=== PATIENT | male | born 1950 | race Caucasian/White ===

== ENCOUNTER 2016-09-03 08:24 | Outpatient (CLI) | payer OTHER ==
--- NOTE | 2016-09-03 13:08 | MRI Report ---
EXAM: RIGHT KNEE MRI WITHOUT CONTRAST EXAM DATE: 09/03/2016 09:05 AM. CLINICAL HISTORY: RIGHT KNEE PAIN. PT FELL IN MAY 2015 ON CEMENT WHICH AGGRAVATED CHRONIC RT KNEE P AIN. COMPARISON: RIGHT KNEE SERIES 08/03/2015. TECHNIQUE: Multiplanar, multisequence T1-weighted and fluid-sensitive sequences of the knee without c ontrast. Other: None. FINDINGS: Bones: No fractures or subluxations. No marrow edema. There are 2 small benign enchondromas in the di stal femoral diametaphyseal region; the more proximal and larger one measures 16 mm in length, 12 mm in AP dimension and 8 mm in width.. Articular Cartilage: Unremarkable. Medial Meniscus: The medial meniscus is intact. Lateral Meniscus: The lateral meniscus is intact. Cruciate Ligaments: The anterior and posterior cruciate ligaments are intact. Collateral Ligaments: Grade 1 sprain of the medial collateral ligament with mild edema underneath the ligament, without laxity. The posterior oblique and the lateral collateral ligaments are intact. Tendons: The quadriceps, patellar, semimembranosus, and popliteus tendons are unremarkable. Musculature: No edema or fatty atrophy. Other: No effusion. No popliteal cyst. No loose bodies. The medial and lateral retinacula, patellofe moral ligaments and iliotibial band are intact. No bursitis. Nonspecific mild subcutaneous edema in the anterior lateral part of the knee, nonspecific, without focal hematoma. The fat pads are unremark able. IMPRESSION: 1. Grade 1 sprain of the medial collateral ligament. 2. Menisci and cruciate ligaments are intact. 3. There are 2 small benign enchondromas in the distal femoral diametaphyseal region; the more proxim al and larger one measures 16 mm in length, 12 mm in AP dimension and 8 mm in width. They are most li avis of no clinical significance. 4. No fracture. [facility] MUSCULOSKELETAL RADIOLOGY SECTION Referring Provider Line: [phone] SITE ID: [id number]
== END 2016-09-03 08:25 | disposition home or self-care (01) ==
LOC: DI 08:24
DX: S83.411A Sprain of medial collateral ligament of right knee, initial encounter (principal); D16.21 Benign neoplasm of long bones of right lower limb

== ENCOUNTER 2016-11-14 07:35 | Outpatient (CLI) | payer OTHER ==
[2016-11-14 13:27] LABS: BILIRUBIN,URINE NEGATIVE (NEGATIVE)
[2016-11-14 14:15] LABS: BASOPHILS % (AUTO) 0.3 %; EOSINOPHILS # (AUTO) 0.2 10^3/uL (0.0-0.7); EOSINOPHILS % (AUTO) 2.5 %; HCT - HEMATOCRIT 40.4 % (42.0-52.0); HGB - HEMOGLOBIN 13.7 g/dL (14.0-18.0); LYMPHOCYTES # (AUTO) 2.4 10^3/uL (1.5-3.5); LYMPHOCYTES % (AUTO) 26.1 %; MEAN CORPUSCULAR HEMOGLOBIN 29.5 pg (27.0-31.0); MEAN CORPUSCULAR HGB CONC 33.9 g/dL (32.0-36.0); MEAN CORPUSCULAR VOLUME 86.9 fL (80.0-94.0); MEAN PLATELET VOLUME 10.6 fL (7.4-11.4); MONOCYTES # (AUTO) 0.6 10^3/uL (0.0-1.0); MONOCYTES % (AUTO) 6.5 %; NEUTROPHILS % (AUTO) 64.6 %; RED BLOOD COUNT 4.65 10^6/uL (4.70-6.10); RED CELL DISTRIBUTION WIDTH 14.6 % (12.0-15.0); UNCORRECTED WHITE BLOOD COUNT 9.3 x10^3/uL; WHITE BLOOD COUNT 9.3 x10^3/uL (4.8-10.8)
[2016-11-14 14:51] LABS: ALBUMIN/GLOBULIN RATIO 1.4 (1.0-2.2); BILIRUBIN,TOTAL 1.1 mg/dL (0.2-1.0); BUN - BLOOD UREA NITROGEN 15 mg/dL (6-20); CALCIUM 9.2 mg/dL (8.5-10.3); CARBON DIOXIDE - CO2 27 mmol/L (21-32); CHLORIDE 104 mmol/L (101-111); CHOL/HDL RATIO 3.4 (<5.0); CHOLESTEROL 106 mg/dL; CREATININE 0.9 mg/dL (0.6-1.2); GFR - MDRD 85 (>89); GLUCOSE 115 mg/dL (70-100); HDL CHOLESTEROL 31 mg/dL; LDL/HDL RATIO 1.6 (<3.6); POTASSIUM 3.5 mmol/L (3.5-5.0); SODIUM 139 mmol/L (135-145); TOTAL PROTEIN 7.4 g/dL (6.7-8.2); TRIGLYCERIDES 131 mg/dL; VLDL CHOLESTEROL 26 mg/dL
[2016-11-14 15:36] LABS: HEMOGLOBIN A1C 0.68 g/dL
[2016-11-14 15:46] LABS: WBC,URINE 0-3 /HPF (0-3)
== END 2016-11-14 07:36 | disposition home or self-care (01) ==
LOC: LAB.WCP 07:35
PROVIDERS: ATTEND Family Medicine
DX: R73.01 Impaired fasting glucose (principal); I25.10 Atherosclerotic heart disease of native coronary artery without angina pectoris; I10 Essential (primary) hypertension; Z12.5 Encounter for screening for malignant neoplasm of prostate
CPT/HCPCS: 36415; 80053; 80061; 81001; 83036; 84153; 85025

== ENCOUNTER 2016-12-27 09:40 | Day surgery (SDC) | payer MEDICARE, OTHER ==
[2016-12-27] MEDS ORDERED: LACTATED RINGERS 1,000 ML IV ONE (10:15)
[2016-12-27] MEDS ORDERED: LIDOCAINE-MPF 2% 5 ML VIAL IM ONE (10:20)
[2016-12-27] MEDS ORDERED: PROPOFOL 200 MG/20 ML VIAL IVP ONE (10:20)
[2016-12-27] MEDS ORDERED: MIDAZOLAM 2 MG/2 ML VIAL IVP ONE (10:20)
[2016-12-27] MEDS ORDERED: KETAMINE 500 MG/10 ML VIAL IVP ONE (10:20)
[2016-12-27] MEDS ORDERED: GLYCOPYRROLATE 1 MG/5 ML VIAL IVP ONE (10:20)
[2016-12-27 12:55] VITALS: BP 99/57
== END 2016-12-27 09:41 | disposition home or self-care (01) ==
LOC: SDS 09:40
PROVIDERS: ATTEND Surgery
PROC: 0DBM8ZZ Excision of Descending Colon, Via Natural or Artificial Opening Endoscopic (ICD-10-PCS; 2016-12-27)
PROC: 0DBK8ZZ Excision of Ascending Colon, Via Natural or Artificial Opening Endoscopic (ICD-10-PCS; principal; 2016-12-27 11:00)
DX: Z12.11 Encounter for screening for malignant neoplasm of colon (principal); D12.2 Benign neoplasm of ascending colon; D12.4 Benign neoplasm of descending colon; K64.4 Residual hemorrhoidal skin tags; K64.8 Other hemorrhoids; G47.30 Sleep apnea, unspecified; K21.9 Gastro-esophageal reflux disease without esophagitis; I10 Essential (primary) hypertension; I25.10 Atherosclerotic heart disease of native coronary artery without angina pectoris; Z95.5 Presence of coronary angioplasty implant and graft; Z87.891 Personal history of nicotine dependence; E78.5 Hyperlipidemia, unspecified
CPT/HCPCS: 45380; J7120

== ENCOUNTER 2017-02-10 07:55 | Outpatient (CLI) | payer MEDICARE, OTHER ==
[2017-02-10 12:49] LABS: HEMOGLOBIN A1C 0.59 g/dL
[2017-02-10 12:52] LABS: PSA FREE 0.34 ng/mL (0.16-2.81)
[2017-02-10 12:53] LABS: PSA TOTAL 2.52 ng/mL (0.000-2.000)
[2017-02-10 12:54] LABS: ALBUMIN/GLOBULIN RATIO 1.2 (1.0-2.2); BILIRUBIN,TOTAL 0.8 mg/dL (0.2-1.0); CALCIUM 9.1 mg/dL (8.5-10.3); CREATININE 0.9 mg/dL (0.6-1.2); POTASSIUM 3.7 mmol/L (3.5-5.0); TOTAL PROTEIN 7.5 g/dL (6.7-8.2)
== END 2017-02-10 07:56 | disposition home or self-care (01) ==
LOC: LAB.WCP 07:55
PROVIDERS: ATTEND Family Medicine
DX: R73.01 Impaired fasting glucose (principal); R97.20 Elevated prostate specific antigen [PSA]
CPT/HCPCS: 36415; 80053; 83036; 84154

== ENCOUNTER 2017-03-17 11:30 | Outpatient (CLI) | payer MEDICARE, OTHER | END 2017-03-17 11:31 | disposition home or self-care (01) | LOC: SC 11:30 | PROVIDERS: ATTEND Internal Medicine Pulmonary Disease | DX: G47.33 Obstructive sleep apnea (adult) (pediatric) (principal) | CPT/HCPCS: 99203; G0463; 99212 ==

== ENCOUNTER 2017-06-02 09:14 | Outpatient (CLI) | payer MEDICARE, OTHER | END 2017-06-02 09:15 | disposition home or self-care (01) | LOC: SC 09:14 | PROVIDERS: ATTEND Internal Medicine Pulmonary Disease | DX: G47.33 Obstructive sleep apnea (adult) (pediatric) (principal) | CPT/HCPCS: 99213; G0463; 99212 ==

== ENCOUNTER 2017-09-29 07:21 | Outpatient (CLI) | payer MEDICARE, OTHER ==
[2017-09-29 13:22] LABS: PSA FREE 0.32 ng/mL (0.16-2.81)
[2017-09-29 13:23] LABS: PSA TOTAL 5.62 ng/mL (0.000-2.000)
[2017-09-29 13:27] LABS: BASOPHILS % (AUTO) 0.3 %; EOSINOPHILS # (AUTO) 0.2 10^3/uL (0.0-0.7); EOSINOPHILS % (AUTO) 2.4 %; HGB - HEMOGLOBIN 12.2 g/dL (14.0-18.0); LYMPHOCYTES # (AUTO) 2.5 10^3/uL (1.5-3.5); LYMPHOCYTES % (AUTO) 26.6 %; MEAN CORPUSCULAR HEMOGLOBIN 29.4 pg (27.0-31.0); MEAN CORPUSCULAR HGB CONC 34.3 g/dL (32.0-36.0); MEAN CORPUSCULAR VOLUME 85.8 fL (80.0-94.0); MEAN PLATELET VOLUME 9.4 fL (7.4-11.4); MONOCYTES # (AUTO) 0.6 10^3/uL (0.0-1.0); MONOCYTES % (AUTO) 6.1 %; NEUTROPHILS % (AUTO) 64.6 %; PLT - PLATELET COUNT 194 10^3/uL (130-450); RED BLOOD COUNT 4.15 10^6/uL (4.70-6.10); RED CELL DISTRIBUTION WIDTH 15.3 % (12.0-15.0); WHITE BLOOD COUNT 9.3 x10^3/uL (4.8-10.8)
[2017-09-29 13:42] LABS: HB2 TOTAL 12.9 g/dL; HEMOGLOBIN A1C 0.63 g/dL; HEMOGLOBIN A1C % 6.6 % (4.6-6.2)
[2017-09-29 14:00] LABS: ALBUMIN 3.9 g/dL (3.2-5.5); ALBUMIN/GLOBULIN RATIO 1.2 (1.0-2.2); ALKALINE PHOSPHATASE 47 IU/L (42-121); ALT ALANINE AMINOTRANSFERASE 26 IU/L (10-60); AST ASPARTATE AMINOTRANSFERASE 27 IU/L (10-42); BILIRUBIN,TOTAL 0.7 mg/dL (0.2-1.0); BUN - BLOOD UREA NITROGEN 11 mg/dL (6-20); CALCIUM 8.8 mg/dL (8.5-10.3); CARBON DIOXIDE - CO2 25 mmol/L (21-32); CHLORIDE 98 mmol/L (101-111); CHOL/HDL RATIO 3.1 (<5.0); CHOLESTEROL 93 mg/dL; CREATININE 0.9 mg/dL (0.6-1.2); GFR - MDRD 85 (>89); GLUCOSE 116 mg/dL (70-100); HDL CHOLESTEROL 30 mg/dL; LDL CHOLESTEROL,CALCULATED 23 mg/dL; LDL/HDL RATIO 0.8 (<3.6); SODIUM 134 mmol/L (135-145); TOTAL PROTEIN 7.2 g/dL (6.7-8.2); URIC ACID 5.2 mg/dL (2.6-7.2); VLDL CHOLESTEROL 40 mg/dL
== END 2017-09-29 07:22 | disposition home or self-care (01) ==
LOC: LAB.WCP 07:21
PROVIDERS: ATTEND Family Medicine
DX: I10 Essential (primary) hypertension (principal); R73.09 Other abnormal glucose; E78.5 Hyperlipidemia, unspecified; R97.20 Elevated prostate specific antigen [PSA]; M10.9 Gout, unspecified; E74.39 Other disorders of intestinal carbohydrate absorption
CPT/HCPCS: 36415; 80053; 80061; 83036; 83721; 84154; 84443; 84550; 85025

== ENCOUNTER 2018-04-14 10:03 | Outpatient (CLI) | payer MEDICARE, OTHER ==
[2018-04-14 19:08] LABS: CALCIUM 9.1 mg/dL (8.5-10.3); CREATININE 0.9 mg/dL (0.6-1.2)
[2018-04-14 19:23] LABS: HB2 TOTAL 14.2 g/dL; HEMOGLOBIN A1C 0.59 g/dL
== END 2018-04-14 10:04 | disposition home or self-care (01) ==
LOC: LAB.WCP 10:03
PROVIDERS: ATTEND Family Medicine
DX: E11.9 Type 2 diabetes mellitus without complications (principal); R97.20 Elevated prostate specific antigen [PSA]; N40.0 Benign prostatic hyperplasia without lower urinary tract symptoms
CPT/HCPCS: 36415; 80048; 82043; 83036

== ENCOUNTER 2018-04-15 07:35 | Outpatient (CLI) | payer MEDICARE, OTHER | END 2018-04-15 07:36 | disposition home or self-care (01) | LOC: LAB.WCP 07:35 | PROVIDERS: ATTEND Family Medicine | DX: E11.9 Type 2 diabetes mellitus without complications (principal); N40.0 Benign prostatic hyperplasia without lower urinary tract symptoms; R97.20 Elevated prostate specific antigen [PSA] | CPT/HCPCS: 82043 ==

== ENCOUNTER 2018-06-01 09:03 | Outpatient (CLI) | payer MEDICARE, OTHER | END 2018-06-01 09:04 | disposition home or self-care (01) | LOC: SC 09:03 | PROVIDERS: ATTEND Internal Medicine Pulmonary Disease | DX: G47.33 Obstructive sleep apnea (adult) (pediatric) (principal) | CPT/HCPCS: 99213; G0463; 99212 ==

== ENCOUNTER 2018-11-13 08:00 | Outpatient (CLI) | payer MEDICARE, OTHER ==
[2018-11-13 11:52] LABS: BASOPHILS % (AUTO) 0.5 %; EOSINOPHILS # (AUTO) 0.3 10^3/uL (0.0-0.7); EOSINOPHILS % (AUTO) 3.4 %; HGB - HEMOGLOBIN 11.9 g/dL (14.0-18.0); LYMPHOCYTES # (AUTO) 2.2 10^3/uL (1.5-3.5); LYMPHOCYTES % (AUTO) 28.9 %; MEAN CORPUSCULAR HGB CONC 32.1 g/dL (32.0-36.0); MEAN CORPUSCULAR VOLUME 90.5 fL (80.0-94.0); MEAN PLATELET VOLUME 11.9 fL (7.4-11.4); MONOCYTES # (AUTO) 0.6 10^3/uL (0.0-1.0); MONOCYTES % (AUTO) 7.7 %; NEUTROPHILS # (AUTO) 4.5 10^3/uL (1.5-6.6); PLT - PLATELET COUNT 201 10^3/uL (130-450); RED CELL DISTRIBUTION WIDTH 13.6 % (12.0-15.0); WHITE BLOOD COUNT 7.6 x10^3/uL (4.8-10.8)
[2018-11-13 12:26] LABS: ALBUMIN 3.8 g/dL (3.2-5.5); ALBUMIN/GLOBULIN RATIO 1.1 (1.0-2.2); ALKALINE PHOSPHATASE 57 IU/L (42-121); ALT ALANINE AMINOTRANSFERASE 45 IU/L (10-60); AST ASPARTATE AMINOTRANSFERASE 35 IU/L (10-42); BILIRUBIN,TOTAL 0.7 mg/dL (0.2-1.0); BUN - BLOOD UREA NITROGEN 16 mg/dL (6-20); CARBON DIOXIDE - CO2 28 mmol/L (21-32); CHLORIDE 100 mmol/L (101-111); CHOL/HDL RATIO 3.5 (<5.0); CHOLESTEROL 99 mg/dL; GFR - MDRD 75 (>89); GLUCOSE 142 mg/dL (70-100); HDL CHOLESTEROL 28 mg/dL; LDL CHOLESTEROL,CALCULATED 32 mg/dL; LDL/HDL RATIO 1.1 (<3.6); SODIUM 136 mmol/L (135-145); TOTAL PROTEIN 7.4 g/dL (6.7-8.2); URIC ACID 6.3 mg/dL (2.6-7.2); VLDL CHOLESTEROL 39 mg/dL
[2018-11-13 12:27] LABS: HB2 TOTAL 12.8 g/dL; HEMOGLOBIN A1C 0.7 g/dL; HEMOGLOBIN A1C % 7.2 % (4.6-6.2)
== END 2018-11-13 23:59 | disposition home or self-care (01) ==
LOC: LAB.WCP 08:00
PROVIDERS: ATTEND Family Medicine
DX: E11.9 Type 2 diabetes mellitus without complications (principal)
CPT/HCPCS: 36415; 80053; 80061; 83036; 83721; 84550; 85025

== ENCOUNTER 2018-11-28 07:48 | Outpatient (CLI) | payer MEDICARE, OTHER ==
--- NOTE | 2018-11-29 10:48 | Ultrasound Report ---
Reason: NICOTINE ADDICTION Procedure Date: 11/28/2018 Accession Number: [id number] / [id number] Procedure: US - Aorta Screening CPT Code: FULL RESULT: EXAM: AORTIC DOPPLER ULTRASOUND EXAM DATE: 11/28/2018 08:55 AM. CLINICAL HISTORY: Nicotine addiction. COMPARISON: None. TECHNIQUE: Real-time sonographic imaging of retroperitoneal vascular structures, including color-flow, Doppler flow and spectral analysis was performed by the hot wort settler. Multiple account service representative static images were saved for review. FINDINGS: Aorta: The abdominal aorta was adequately visualized. No evidence for abdominal aortic aneurysm. Atheromatous plaques are noted. Aorta: Proximal: Sagittal AP 2.7 x 2.8 cm. Mid: Transverse 2.3 x 2.3 cm. Distal: Transverse 1.8 x 1.7 cm. Plaque visualized: Yes. Iliacs: Right Iliac: Transverse 1.3 x 1.1 cm. Left Iliac: Transverse 1.1 x 1.2 cm. Iliac Vessels: The visualized proximal common iliac arteries are normal in caliber. Other: Study limited by bowel gas and body habitus. IMPRESSION: No abdominal aortic aneurysm. [facility]
== END 2018-11-28 07:49 | disposition home or self-care (01) ==
LOC: DI 07:48
PROVIDERS: ATTEND Family Medicine
DX: I70.0 Atherosclerosis of aorta (principal); F17.201 Nicotine dependence, unspecified, in remission
CPT/HCPCS: 76706

== ENCOUNTER 2019-07-06 15:48 | Outpatient (CLI) | payer MEDICARE, OTHER ==
--- NOTE | 2019-07-06 14:32 | SLEEP CARE CONSULTATION ---
Information from patient questionnaire entered by Khushbu Flores. I have reviewed and concur with the information entered by Khushbu Flores. This document represents the service I personally performed and the decisions made by me, Gemma Stanford MD, [facility]. History of Present Illness Service Date and Time: 07/06/2019 1420 Previous diagnosis: Severe, Obstructive Sleep Apnea-Hypopnea Syndrome AHI: 56.9 Reason for follow up: annual Equipment type: CPAP Equipment obtained from: [employer] HPI additional information: To minimize the risk of COVID-19 exposure, the patient has requested and consented to this video telemedicine visit. The patient also agrees to having his insurance billed. HPI: Mr. Saxena was called today to follow up on the nasal CPAP therapy. He was diagnosed to have severe obstructive sleep apnea-hypopnea syndrome. The patient wears Respironics DreamWear nasal pillows. He reports using the device nightly and all through the night. The compliance report shows usage in 180 nights out of the past 180 nights, averaging 7.3 hours a night. The > 4 hour compliance rate for the past 180 days is 100%. He complained of no particular problem with the device such as soreness on the face, dry nose, epistaxis, nasal congestion or headache. He thinks that the pressure of 13 cmH2O is comfortable. On the CPAP therapy he notices improvement in his sleep quality, and that he wakes up feeling fresher in the morning and more awake/alert during the day. His notices no snore at all. The average residual AHI is 1.4; and average time in average air leak is 0.5 L/minute. CPAP Compliance Data - Data Reviewed with Patient Average duration of nightly device use: 7H 20M Compliance rate %: 100 Current pressure setting (cmH2O): 10-15 Subjective Initial [place] Sleepiness Scale score: 6 Allergies and Home Medications Drug allergies reviewed: Yes Home medication list reviewed: Yes Review of Systems Review of systems same as previous: Yes Physical Exam Height: 5 ft 8 in Impression and Plan IMPRESSION: 1. Obstructive Sleep Apnea-Hypopnea Syndrome, severe, with the patient doing we ll on nasal CPAP therapy. He has excellent compliance and significant clinical improvement. The current pressure appears effective and comfortable. The nasal pillows fit well. Overall, he is very satisfied with treatment and plans to continue with it long-term. No adjustment is necessary today. PLAN: 1. Continue with autoCPAP set at 13 cmH2O. 2. Try to lose weight 3. Try other masks and nasal pillows, e.g. ResMed N30i mask and P30i nasal pillows. 4. Return in one year for follow up or earlier if there is any problem with the treatment. Visit Type: Telehealth Video Video Type: [employer] Patient Location: Home Location of Provider: Home Patient agrees and consents to this telehealth visit type: Yes Patient agrees to have their insurance billed: Yes Provider Statement: I spent 100% of the Telehealth Video Call with the patient with greater than 50% spent counseling the patient and coordination of care.
== END 2019-07-06 15:49 | disposition home or self-care (01) ==
LOC: SC 15:48
PROVIDERS: ATTEND Internal Medicine Pulmonary Disease
DX: G47.33 Obstructive sleep apnea (adult) (pediatric) (principal)

== ENCOUNTER 2019-11-24 07:00 | Outpatient (CLI) | payer MEDICARE, OTHER ==
[2019-11-24 18:35] LABS: BASOPHILS % (AUTO) 0.3 %; EOSINOPHILS # (AUTO) 0.2 10^3/uL (0.0-0.7); EOSINOPHILS % (AUTO) 2.7 %; HGB - HEMOGLOBIN 11.7 g/dL (14.0-18.0); LYMPHOCYTES % (AUTO) 30.9 %; MEAN CORPUSCULAR HEMOGLOBIN 31.5 pg (27.0-31.0); MEAN CORPUSCULAR HGB CONC 33.6 g/dL (32.0-36.0); MEAN CORPUSCULAR VOLUME 93.8 fL (80.0-94.0); MONOCYTES # (AUTO) 0.4 10^3/uL (0.0-1.0); MONOCYTES % (AUTO) 6.3 %; NEUTROPHILS # (AUTO) 3.8 10^3/uL (1.5-6.6); NEUTROPHILS % (AUTO) 59.5 %; PLT - PLATELET COUNT 180 10^3/uL (130-450); RED BLOOD COUNT 3.71 10^6/uL (4.70-6.10); RED CELL DISTRIBUTION WIDTH 13.7 % (12.0-15.0); WHITE BLOOD COUNT 6.4 x10^3/uL (4.8-10.8)
[2019-11-24 19:07] LABS: CREATININE,URINE 39.5 mg/dL; MICROALBUM/CREATININE RATIO,UR 7.6 ug/mg (<30.0); MICROALBUMIN,URINE 0.3 mg/dL (0-300.0)
[2019-11-24 19:08] LABS: ALBUMIN/GLOBULIN RATIO 1.2 (1.0-2.2); ALKALINE PHOSPHATASE 50 IU/L (42-121); ALT ALANINE AMINOTRANSFERASE 24 IU/L (10-60); AST ASPARTATE AMINOTRANSFERASE 23 IU/L (10-42); BILIRUBIN,TOTAL 0.7 mg/dL (0.2-1.0); BUN - BLOOD UREA NITROGEN 23 mg/dL (6-20); CHOL/HDL RATIO 3.1 (<5.0); CHOLESTEROL 93 mg/dL; CREATININE 1.1 mg/dL (0.6-1.2); HDL CHOLESTEROL 30 mg/dL; LDL CHOLESTEROL,CALCULATED 27 mg/dL; LDL/HDL RATIO 0.9 (<3.6); TOTAL PROTEIN 7.4 g/dL (6.7-8.2); URIC ACID 6.5 mg/dL (2.6-7.2); VLDL CHOLESTEROL 36 mg/dL
[2019-11-24 19:12] LABS: CALCIUM 9.3 mg/dL (8.5-10.3); CARBON DIOXIDE - CO2 25 mmol/L (21-32); CHLORIDE 101 mmol/L (101-111); GLUCOSE 185 mg/dL (70-100); SODIUM 134 mmol/L (135-145)
== END 2019-11-24 23:59 | disposition home or self-care (01) ==
LOC: LAB.WCP 07:00
PROVIDERS: ATTEND Family Medicine
DX: E11.9 Type 2 diabetes mellitus without complications (principal); R97.20 Elevated prostate specific antigen [PSA]; M10.9 Gout, unspecified
CPT/HCPCS: 36415; 80053; 80061; 82043; 82570; 83036; 84550; 85025; G0103; 83721; 84153

== ENCOUNTER 2020-07-24 12:41 | Outpatient (CLI) | payer MEDICARE, OTHER ==
--- NOTE | 2020-07-24 13:22 | SLEEP CARE CONSULTATION ---
Information from patient questionnaire entered by Miryam Sarmiento. I have reviewed and concur with the information entered by Miryam Sarmiento. This document represents the service I personally performed and the decisions made by me, Gemma Stanford MD, [facility]. History of Present Illness Service Date and Time: 07/24/2020 1241 Previous diagnosis: Severe, Obstructive Sleep Apnea-Hypopnea Syndrome AHI: 56.9 (in 2007) Reason for follow up: annual (last seen 06/2019) Equipment type: CPAP Equipment obtained from: Other ([employer]) Mask style: Nasal pillows Prior sleep studies: Yes Year and Where: 2007 - [facility] Sleep Type of Sleep Study: Polysomnography HPI additional information: HPI: Mr. Saxena was diagnosed to have severe obstructive sleep apnea-hypopnea syndrome and returns today for annual follow up of CPAP therapy. The patient purchased the device from [employer] and was fitted with Respironics DreamWear nasal pillows. He continues to use the device nightly and all through the night. The compliance report shows that he uses the device 179 nights out of the past 180 nights, averaging 7.2 hours a night. He complains of no particular problem with the device such as soreness on the face, dry nose, epistaxis, nasal congestion or headache. He thinks that the pressure of 10 - 15 cmH2O is comfortable. On the CPAP therapy he notices improvement in his sleep quality, and that he wakes up feeling fresher in the morning and more awake/alert during the day. [place] Sleepiness Scale score is 3. His notices no snore at all. The average residual AHI is 1.7; and large leak, 0 L/min. The 90th percentile pressure is 13.2 cmH2O. CPAP Compliance Data - Data Reviewed with Patient Average duration of nightly device use: 7 hr 13 min Compliance rate %: 99 (180 days) Current pressure setting (cmH2O): 10-15 Humidity settin Average residual AHI: 1.7 Subjective Missed days of use due to: reports: other (power outages) Patient concerns: reports: dry mouth, nose, throat Current pressure setting perceived as: comfortable Initial [place] Sleepiness Scale score: 18 (in 2007) Current [place] Sleepiness Scale score: 3 Allergies and Home Medications Drug allergies reviewed: Yes Home medication list reviewed: Yes Review of Systems Review of systems same as previous: Yes Physical Exam Height: 5 ft 8 in Weight: 229 lb Body Mass Index: 34.8 BMI Classification: Obese Impression and Plan IMPRESSION: 1. Obstructive Sleep Apnea-Hypopnea Syndrome, severe, with the patient continuing to do well on nasal CPAP therapy. He has excellent compliance and significant clinical benefits. The current pressure appears effective and comfortable. Overall, he is very satisfied with treatment and plans to continue with it long-term. No adjustment is necessary today. PLAN: 1. Leave CPAP at 10 - 15 cm H2O. 2. Prescription made for ResMed P30i nasal pillows. 3. Try to lose weight. 4. Return in one year for follow up or earlier if there is any problem. Follow up recommended for: Weight management Visit Type: In Office Time Spent with Patient (minutes): 15 Provider Statement: I spent 100% of the Face to Face Visit with the patient with greater than 50% spent counseling the patient and coordination of care.
== END 2020-07-24 12:42 | disposition home or self-care (01) ==
LOC: SC 12:41
PROVIDERS: ATTEND Internal Medicine Pulmonary Disease
DX: G47.33 Obstructive sleep apnea (adult) (pediatric) (principal); E66.9 Obesity, unspecified; Z68.34 Body mass index [BMI] 34.0-34.9, adult
CPT/HCPCS: 99212; G0463

== ENCOUNTER 2020-10-23 09:11 | Outpatient (CLI) | payer MEDICARE, OTHER ==
[2020-10-23 12:23] LABS: BASOPHILS % (AUTO) 0.4 %; EOSINOPHILS # (AUTO) 0.2 10^3/uL (0.0-0.7); HCT - HEMATOCRIT 38.6 % (42.0-52.0); HGB - HEMOGLOBIN 12.8 g/dL (14.0-18.0); LYMPHOCYTES # (AUTO) 2.3 10^3/uL (1.5-3.5); LYMPHOCYTES % (AUTO) 29.3 %; MEAN CORPUSCULAR HEMOGLOBIN 30.3 pg (27.0-31.0); MEAN CORPUSCULAR HGB CONC 33.2 g/dL (32.0-36.0); MEAN CORPUSCULAR VOLUME 91.3 fL (80.0-94.0); MEAN PLATELET VOLUME 11.9 fL (7.4-11.4); MONOCYTES # (AUTO) 0.7 10^3/uL (0.0-1.0); MONOCYTES % (AUTO) 8.6 %; NEUTROPHILS # (AUTO) 4.5 10^3/uL (1.5-6.6); NEUTROPHILS % (AUTO) 58.2 %; PLT - PLATELET COUNT 179 10^3/uL (130-450); RED BLOOD COUNT 4.23 10^6/uL (4.70-6.10); RED CELL DISTRIBUTION WIDTH 13.9 % (12.0-15.0); WHITE BLOOD COUNT 7.8 x10^3/uL (4.8-10.8)
[2020-10-23 12:41] LABS: ALBUMIN 4.1 g/dL (3.2-5.5); ALBUMIN/GLOBULIN RATIO 1.3 (1.0-2.2); ALKALINE PHOSPHATASE 56 IU/L (42-121); ALT ALANINE AMINOTRANSFERASE 37 IU/L (10-60); AST ASPARTATE AMINOTRANSFERASE 31 IU/L (10-42); BILIRUBIN,TOTAL 0.9 mg/dL (0.2-1.0); BUN - BLOOD UREA NITROGEN 19 mg/dL (6-20); CALCIUM 9.5 mg/dL (8.5-10.3); CARBON DIOXIDE - CO2 29 mmol/L (21-32); CHLORIDE 99 mmol/L (101-111); CHOL/HDL RATIO 3.5 (<5.0); CHOLESTEROL 99 mg/dL; GFR - MDRD 74 (>89); GLUCOSE 116 mg/dL (70-100); HDL CHOLESTEROL 28 mg/dL; LDL CHOLESTEROL,CALCULATED 34 mg/dL; LDL/HDL RATIO 1.2 (<3.6); POTASSIUM 3.4 mmol/L (3.5-5.0); SODIUM 137 mmol/L (135-145); TOTAL PROTEIN 7.2 g/dL (6.7-8.2); TRIGLYCERIDES 183 mg/dL; URIC ACID 6.6 mg/dL (2.6-7.2); VLDL CHOLESTEROL 37 mg/dL
[2020-10-23 12:55] LABS: ESTIMATED AVERAGE GLUCOSE 131 mg/dL (70-100); HEMOGLOBIN A1c% 6.2 % (4.27-6.07)
[2020-10-23 18:26] LABS: CREATININE,URINE 91.8 mg/dL; MICROALBUM/CREATININE RATIO,UR 66.4 ug/mg (<30.0); MICROALBUMIN,URINE 6.1 mg/dL (0-300.0)
== END 2020-10-23 23:59 | disposition home or self-care (01) ==
LOC: LAB.WCP 09:11
PROVIDERS: ATTEND Family Medicine
DX: E11.9 Type 2 diabetes mellitus without complications (principal); Z12.5 Encounter for screening for malignant neoplasm of prostate; D50.9 Iron deficiency anemia, unspecified; M10.9 Gout, unspecified
CPT/HCPCS: 36415; 80053; 80061; 82043; 82570; 82728; 83036; 84550; 85025; G0103; 83721; 84153

== ENCOUNTER 2020-12-22 06:51 | Day surgery (SDC) | payer MEDICARE, OTHER ==
[2020-12-22] MEDS ORDERED: LACTATED RINGERS 1,000 ML IV ONE ×2 (07:09→08:30)
[2020-12-22] MEDS ORDERED: LIDOCAINE-MPF 2% 5 ML VIAL ONE (07:14)
[2020-12-22] MEDS ORDERED: PROPOFOL 500 MG/50 ML 500 MG/50 ML VIAL ONE (07:17)
--- NOTE | 2020-12-22 07:43 | HISTORY & PHYSICAL EXAMINATION ---
Chief Complaint - Chief Complaint Chief Complaint: left upper quadrant pain and anemia History of Present Illness - History Obtained From Records Reviewed: yes History obtained from: pt Exam Limitations: none - History of Present Illness HPI Comment/Other: longstanding gerd symptoms. periodic upper abdominal pain. mild anemia. up to date on colon cancer screening. History - Past Medical History Cardiovascular: reports: Hypertension, High cholesterol, Coronary artery disease Respiratory: reports: Sleep apnea, CPAP use Endocrine/Autoimmune: reports: None GI: reports: GERD, GI bleed, Hemorrhoids : reports: Benign prostate hypertrophy HEENT: reports: Chronic vision loss, Chronic sinusitis, Chronic hearing loss Psych: reports: None Musculoskeletal: reports: Osteoarthritis, Gout, Chronic back pain Derm: reports: None MRSA Hx?: No - Past Surgical History General: reports: Colonoscopy, EGD Cardiovascular: reports: Coronary stent, Cardiac catheterization Meds/Allgy - Home Medications Home Medications: Ambulatory Orders Medication Instructions Recorded Confirmed Aspirin [Aspir 81] 162 mg PO QDAC 01/26/13 12/22/20 Atenolol [Tenormin] 100 mg PO DAILY 01/26/13 12/22/20 Ferrous Gluconate [Fergon] 325 mg PO DAILY 01/26/13 12/22/20 Loratadine [Claritin] 10 mg PO QDAC 01/26/13 12/22/20 Omeprazole [PriLOSEC] 20 mg PO BID 01/26/13 12/22/20 allopurinoL [Zyloprim] 300 mg PO DAILY 01/26/13 12/22/20 lisinopriL [Zestril] 40 mg PO DAILY 01/26/13 12/22/20 Atorvastatin [Lipitor] 40 mg PO DAILY 03/16/15 12/22/20 Colchicine 0.6 mg PO TID 12/17/16 12/22/20 Nitroglycerin [Nitrostat] 0.4 mg SL Q5MIN PRN 12/17/16 12/22/20 hydroCHLOROthiazide 25 mg PO DAILY 12/17/16 12/22/20 [Hydrochlorothiazide] Isosorbide Mononitrate ER [Imdur] 0.5 tab PO DAILY 12/22/20 12/22/20 Tamsulosin [Flomax] 0.8 mg PO DAILY 12/22/20 12/22/20 amLODIPine [Norvasc] 5 mg PO DAILY 12/22/20 12/22/20 - Allergies Allergies/Adverse Reactions: Allergies Allergy/AdvReac Type Severity Reaction Status Date / Time propoxyphene HCl * AdvReac Intermediate Nausea Verified 12/22/20 07:20 [From Genna] Review of Systems - Other Findings Other Findings: 10 pt ros as above otherwise unremarkable Exam - Vital Signs Reviewed Vital Signs: Yes Vital Signs: Vital Signs x48h Temp Pulse Resp BP Pulse Ox 12/22/20 07:00 36.2 C L 69 18 135/73 H 97 - Physical Exam General Appearance: positive: No acute distress, Alert Eyes Bilateral: positive: PERRL, EOMI ENT: positive: No signs of dehydration Neck: positive: No JVD Respiratory: positive: No respiratory distress, Breath sounds nml Cardiovascular: positive: Regular rate & rhythm Abdomen: positive: Non-tender, No distention Neurologic/Psychiatric: positive: Oriented x3 Conclusion/Plan - Problem List (1) GERD (gastroesophageal reflux disease) Conclusion/Plan: longstanding gerd symptoms now with epigastric pain and mild anemia plan EGD. parq held and consent obtained
--- NOTE | 2020-12-22 07:54 | ANESTHESIA ---
Pre-Anesthesia VS, & Labs - Diagnosis GERD - Procedure EGD Vital Signs: Temp Pulse Resp BP Pulse Ox 36.2 C L 69 18 135/73 H 97 12/22/20 07:00 12/22/20 07:00 12/22/20 07:00 12/22/20 07:00 12/22/20 07:00 Height: 5 ft 8 in Weight (kg): 102 kg Body Mass Index: 34.2 BMI Classification: Obese - NPO >8 hours - Lab Results Current Lab Results: Laboratory Tests 12/22/20 07:18: POC Whole Bld Glucose 116 H Home Medications and Allergies Home Medications: Ambulatory Orders Isosorbide Mononitrate ER [Imdur] 0.5 tab PO DAILY 12/22/20 Tamsulosin [Flomax] 0.8 mg PO DAILY 12/22/20 amLODIPine [Norvasc] 5 mg PO DAILY 12/22/20 Aspirin [Aspir 81] 162 mg PO QDAC 01/26/13 Atenolol [Tenormin] 100 mg PO DAILY 01/26/13 Ferrous Gluconate [Fergon] 325 mg PO DAILY 01/26/13 Loratadine [Claritin] 10 mg PO QDAC 01/26/13 Omeprazole [PriLOSEC] 20 mg PO BID 01/26/13 allopurinoL [Zyloprim] 300 mg PO DAILY 01/26/13 lisinopriL [Zestril] 40 mg PO DAILY 01/26/13 Atorvastatin [Lipitor] 40 mg PO DAILY 03/16/15 Colchicine 0.6 mg PO TID 12/17/16 Nitroglycerin [Nitrostat] 0.4 mg SL Q5MIN PRN 12/17/16 hydroCHLOROthiazide [Hydrochlorothiazide] 25 mg PO DAILY 12/17/16 Isosorbide Mononitrate ER [Imdur] 0.5 tab PO DAILY 12/22/20 Tamsulosin [Flomax] 0.8 mg PO DAILY 12/22/20 amLODIPine [Norvasc] 5 mg PO DAILY 12/22/20 Allergies/Adverse Reactions: Allergies Allergy/AdvReac Type Severity Reaction Status Date / Time propoxyphene HCl * AdvReac Intermediate Nausea Verified 12/22/20 07:20 [From Genna] Anes History & Medical History - Anesthetic History Anesthesia Complications: reports: No previous complications Family history of Anesthesia Complications: Denies Family history of Malignant Hyperthermia: Denies - Medical History Cardiovascular: reports: Hypertension, High cholesterol, Coronary artery disease Pulmonary: reports: Sleep apnea, CPAP use Gastrointestinal: reports: GERD, GI bleed, Hemorrhoids Urinary: reports: Benign prostate hypertrophy Musculoskeletal: reports: Osteoarthritis, Gout, Chronic back pain Endocrine/Autoimmune: reports: None Blood Disorders: reports: Anemia Skin: reports: None Smoking Status: Former smoker - Surgical History General: reports: Colonoscopy, EGD Cardiothoracic: reports: Coronary stent, Cardiac catheterization Urologic: reports: Testicular surgery Exam General: Alert Dental: Loose/Frag, Other (very poor dentition with multiple broken and loose teeth) Mouth Openin Fingerbreadth Neck Mobility: Normal Mallampati classification: II Respiratory: Lungs clear Cardiovascular: Regular rate Plan Anesthesia Type: Total IV Consent for Procedure(s) Verified and Reviewed: Yes Code Status: Attempt Resuscitation ASA classification: 3-Severe systemic disease Is this case an emergency?: No
[2020-12-22 08:46] VITALS: BP 123/75
--- NOTE | 2020-12-22 15:27 | ANESTHESIA POST OP EVALUATION ---
Anesthesia Post Eval - Post Anesthesia Eval Vitals: Last Vital Signs Temp 36.3 C L 12/22/20 08:45 Pulse 69 12/22/20 08:45 Resp 18 12/22/20 08:45 BP 123/75 12/22/20 08:45 Pulse Ox 96 12/22/20 08:45 CV Function Including HR & BP: Stable Pain Control: Satisfactory Nausea & Vomiting: Negative Mental Status: Baseline Respiratory Status: Airway Patent Hydration Status: Satisfactory Anesthesia Complications: None
== END 2020-12-22 06:52 | disposition home or self-care (01) ==
LOC: SDS 06:51
PROVIDERS: ATTEND Surgery
PROC: 0DB78ZX Excision of Stomach, Pylorus, Via Natural or Artificial Opening Endoscopic, Diagnostic (ICD-10-PCS; principal; 2020-12-22 08:30)
DX: K29.50 Unspecified chronic gastritis without bleeding (principal); K21.9 Gastro-esophageal reflux disease without esophagitis; I10 Essential (primary) hypertension; E78.00 Pure hypercholesterolemia, unspecified; I25.10 Atherosclerotic heart disease of native coronary artery without angina pectoris; G47.30 Sleep apnea, unspecified; N40.0 Benign prostatic hyperplasia without lower urinary tract symptoms; M10.9 Gout, unspecified; M19.90 Unspecified osteoarthritis, unspecified site; G89.29 Other chronic pain; M54.9 Dorsalgia, unspecified; E66.9 Obesity, unspecified; Z68.34 Body mass index [BMI] 34.0-34.9, adult; H54.7 Unspecified visual loss; H91.90 Unspecified hearing loss, unspecified ear; Z79.82 Long term (current) use of aspirin; Z79.899 Other long term (current) drug therapy
CPT/HCPCS: 43239; J7120

== ENCOUNTER 2021-02-09 11:35 | Outpatient (CLI) | payer MEDICARE, OTHER ==
[2021-02-09] MEDS ORDERED: IOVERSOL 320 100 ML VIAL IVP ONE ×2 (12:25→13:33)
[2021-02-09] MEDS ORDERED: IOVERSOL 320 50 ML VIAL ONE (12:25)
[2021-02-09] MEDS ORDERED: IOVERSOL 320 50 ML VIAL PO ONE (13:34)
--- NOTE | 2021-02-09 16:07 | CT Report ---
PROCEDURE: Abdomen/Pelvis W INDICATIONS: LEFT LOWER QUAD ABD PAIN CONTRAST: IV CONTRAST: Optiray 320 ml: 100 PO CONTRAST: Optiray 320 ml50 TECHNIQUE: After the administration of IV and oral contrast, 5 mm thick sections acquired from the diaphragms to the symphysis. 5 mm thick coronal and sagittal reformats were acquired. For radiation dose reducti on, the following was used: automated exposure control, adjustment of mA and/or kV according to chandana ent size. COMPARISON: None. FINDINGS: ABDOMEN: Lung bases: No acute findings. Heart:Normal in size. No pericardial effusion. Liver: Hepatic steatosis. Gallbladder: Decompressed otherwise unremarkable Bile ducts: Normal. Pancreas: Normal. Spleen: Normal. Adrenals: Normal. Kidneys and ureters: Subcentimeter renal foci which are statistically cysts, however too to character ize accurately and therefore technically indeterminate. However, solid appearing 1.4 cm lesion involving the lower pole of the left kidney image 47/3. No hyd ronephrosis. Ureters appear decompressed. Stomach and duodenum: Normal. Bowel: Normal appendix. No evidence of bowel obstruction. Colonic diverticulosis incidentally noted w ithout evidence of acute inflammation. Other: No free fluid or air. Abdominal nodes: Normal. Aorta: Normal in size. IVC: Normal. Ventral wall: Normal. PELVIS: Bladder and reproductive: Unremarkable. Pelvic nodes: Normal. Inguinal: Fat-containing right inguinal hernia measuring approximately 4 cm. Bones: No vertebral body compression fracture. No suspicious bone lesion. IMPRESSION: No specific acute abnormality to explain left lower quadrant pain. Incidentally noted 1.4 cm solid re nal lesion involving the left lower pole, considered neoplasm until proven otherwise. Recommend urolo gy surgical consultation. Additional chronic and incidental findings as above. Findings (including all critical results) and recommendations were personally telephoned and discusse d with Dr. Valenzuela's triage nurse (Noemi) on 02-09-21 16:04 Reviewed by: Mario Alberto Strong MD on 02/09/2021 4:06 PM [facility] Approved by: Mario Alberto Strong MD on 02/09/2021 4:06 PM PST Station ID: [id number]
== END 2021-02-09 11:36 | disposition home or self-care (01) ==
LOC: DI 11:35
PROVIDERS: ATTEND Family Medicine
DX: R10.32 Left lower quadrant pain (principal); R93.422 Abnormal radiologic findings on diagnostic imaging of left kidney
CPT/HCPCS: 36415; 74177; 82565; Q9967

== ENCOUNTER 2021-06-19 15:56 | Outpatient (CLI) | payer MEDICARE, OTHER ==
[2021-06-19 18:05] LABS: BASOPHILS % (AUTO) 0.2 %; EOSINOPHILS # (AUTO) 0.2 10^3/uL (0.0-0.7); EOSINOPHILS % (AUTO) 1.8 %; HCT - HEMATOCRIT 37.4 % (42.0-52.0); HGB - HEMOGLOBIN 12.5 g/dL (14.0-18.0); LYMPHOCYTES # (AUTO) 2.9 10^3/uL (1.5-3.5); LYMPHOCYTES % (AUTO) 35.7 %; MEAN CORPUSCULAR HEMOGLOBIN 29.9 pg (27.0-31.0); MEAN CORPUSCULAR HGB CONC 33.4 g/dL (32.0-36.0); MEAN CORPUSCULAR VOLUME 89.5 fL (80.0-94.0); MEAN PLATELET VOLUME 11.3 fL (7.4-11.4); MONOCYTES # (AUTO) 0.6 10^3/uL (0.0-1.0); MONOCYTES % (AUTO) 7.3 %; NEUTROPHILS # (AUTO) 4.4 10^3/uL (1.5-6.6); NEUTROPHILS % (AUTO) 54.5 %; PLT - PLATELET COUNT 228 10^3/uL (130-450); RED BLOOD COUNT 4.18 10^6/uL (4.70-6.10); RED CELL DISTRIBUTION WIDTH 13.5 % (12.0-15.0); WHITE BLOOD COUNT 8.1 x10^3/uL (4.8-10.8)
[2021-06-19 18:22] LABS: CREATININE,URINE 55.4 mg/dL; MICROALBUMIN,URINE 0.5 mg/dL (0-300.0)
[2021-06-19 18:29] LABS: ALBUMIN 4.4 g/dL (3.2-5.5); ALBUMIN/GLOBULIN RATIO 1.3 (1.0-2.2); ALKALINE PHOSPHATASE 51 IU/L (42-121); ALT ALANINE AMINOTRANSFERASE 35 IU/L (10-60); AST ASPARTATE AMINOTRANSFERASE 30 IU/L (10-42); BILIRUBIN,TOTAL 0.8 mg/dL (0.2-1.0); BUN - BLOOD UREA NITROGEN 22 mg/dL (6-20); CALCIUM 9.2 mg/dL (8.5-10.3); CARBON DIOXIDE - CO2 27 mmol/L (21-32); CHLORIDE 100 mmol/L (101-111); CHOL/HDL RATIO 3.6 (<5.0); CHOLESTEROL 113 mg/dL; CREATININE 0.9 mg/dL (0.6-1.2); GFR - MDRD 84 (>89); GLUCOSE 120 mg/dL (70-100); HDL CHOLESTEROL 31 mg/dL; LDL CHOLESTEROL,CALCULATED 25 mg/dL; LDL/HDL RATIO 0.8 (<3.6); POTASSIUM 3.3 mmol/L (3.5-5.0); SODIUM 138 mmol/L (135-145); TOTAL PROTEIN 7.7 g/dL (6.7-8.2); TRIGLYCERIDES 284 mg/dL; VLDL CHOLESTEROL 57 mg/dL
[2021-06-19 20:38] LABS: ESTIMATED AVERAGE GLUCOSE 134 mg/dL (70-100); HEMOGLOBIN A1c% 6.3 % (4.27-6.07)
== END 2021-06-19 15:57 | disposition home or self-care (01) ==
LOC: LAB.N 15:56
PROVIDERS: ATTEND Family Medicine
DX: E11.9 Type 2 diabetes mellitus without complications (principal)
CPT/HCPCS: 36415; 80053; 80061; 82043; 82570; 83036; 83721; 85025

== ENCOUNTER 2021-09-20 08:00 | Outpatient (CLI) | payer MEDICARE, OTHER ==
[2021-09-25 06:09] LABS: GIARDIA LAMBLIA AG EIA Negative (Negative)
== END 2021-09-20 23:59 | disposition home or self-care (01) ==
LOC: LAB.N 08:00
PROVIDERS: ATTEND Registered Nurse
DX: R10.9 Unspecified abdominal pain (principal); R19.7 Diarrhea, unspecified
CPT/HCPCS: 87045; 87046; 87177; 87328; 87329; 87427; 87493

== ENCOUNTER 2022-04-22 07:45 | Outpatient (CLI) | payer MEDICARE, OTHER ==
[2022-04-22 13:27] LABS: ESTIMATED AVERAGE GLUCOSE 128 mg/dL (70-100); HEMOGLOBIN A1c% 6.1 % (4.27-6.07)
[2022-04-22 13:35] LABS: CREATININE,URINE 156.2 mg/dL; MICROALBUM/CREATININE RATIO,UR 5.1 ug/mg (<30.0); MICROALBUMIN,URINE 0.8 mg/dL (0-300.0)
[2022-04-22 13:44] LABS: ALBUMIN 3.6 g/dL (3.2-5.5); ALKALINE PHOSPHATASE 63 IU/L (42-121); ALT ALANINE AMINOTRANSFERASE 31 IU/L (10-60); AST ASPARTATE AMINOTRANSFERASE 25 IU/L (10-42); BILIRUBIN,TOTAL 0.9 mg/dL (0.2-1.0); BUN - BLOOD UREA NITROGEN 25 mg/dL (6-20); CALCIUM 9.2 mg/dL (8.5-10.3); CARBON DIOXIDE - CO2 24 mmol/L (21-32); CHLORIDE 100 mmol/L (101-111); CHOL/HDL RATIO 3.4 (<5.0); CHOLESTEROL 99 mg/dL; CREATININE 1.3 mg/dL (0.6-1.2); GFR - MDRD 55 (>89); GLUCOSE 123 mg/dL (70-100); HDL CHOLESTEROL 29 mg/dL; LDL CHOLESTEROL,CALCULATED 44 mg/dL; LDL/HDL RATIO 1.5 (<3.6); MAGNESIUM 1.6 mg/dL (1.7-2.8); POTASSIUM 3.9 mmol/L (3.5-5.0); SODIUM 137 mmol/L (135-145); TOTAL PROTEIN 7.2 g/dL (6.7-8.2); TRIGLYCERIDES 129 mg/dL; VLDL CHOLESTEROL 26 mg/dL
== END 2022-04-22 07:46 | disposition home or self-care (01) ==
LOC: LAB.N 07:45
PROVIDERS: ATTEND Physician Assistant
DX: E78.5 Hyperlipidemia, unspecified (principal); E11.9 Type 2 diabetes mellitus without complications; E83.42 Hypomagnesemia
CPT/HCPCS: 36415; 80053; 80061; 82043; 82570; 83036; 83721; 83735

== ENCOUNTER 2022-07-15 09:18 | Outpatient (CLI) | payer MEDICARE, OTHER ==
[2022-07-15 14:06] LABS: ALBUMIN 4.1 g/dL (3.2-5.5); ALBUMIN/GLOBULIN RATIO 1.1 (1.0-2.2); BILIRUBIN,TOTAL 0.7 mg/dL (0.2-1.0); CALCIUM 9.2 mg/dL (8.5-10.3); CREATININE 1.1 mg/dL (0.6-1.2); POTASSIUM 3.8 mmol/L (3.5-5.0); TOTAL PROTEIN 7.7 g/dL (6.7-8.2)
[2022-07-15 14:26] LABS: ESTIMATED AVERAGE GLUCOSE 143 mg/dL (70-100); HEMOGLOBIN A1c% 6.6 % (4.27-6.07)
== END 2022-07-15 09:19 | disposition home or self-care (01) ==
LOC: LAB.N 09:18
PROVIDERS: ATTEND Physician Assistant
DX: E11.9 Type 2 diabetes mellitus without complications (principal)
CPT/HCPCS: 36415; 80053; 83036

== ENCOUNTER 2022-10-09 09:27 | Outpatient (CLI) | payer MEDICARE, OTHER ==
[2022-10-09 12:20] LABS: BASOPHILS % (AUTO) 0.4 %; EOSINOPHILS # (AUTO) 0.4 10^3/uL (0.0-0.7); EOSINOPHILS % (AUTO) 3.9 %; HCT - HEMATOCRIT 37.9 % (42.0-52.0); HGB - HEMOGLOBIN 12.4 g/dL (14.0-18.0); LYMPHOCYTES # (AUTO) 2.8 10^3/uL (1.5-3.5); LYMPHOCYTES % (AUTO) 30.8 %; MEAN CORPUSCULAR HEMOGLOBIN 30.2 pg (27.0-31.0); MEAN CORPUSCULAR HGB CONC 32.7 g/dL (32.0-36.0); MEAN CORPUSCULAR VOLUME 92.2 fL (80.0-94.0); MEAN PLATELET VOLUME 12.2 fL (7.4-11.4); MONOCYTES # (AUTO) 0.7 10^3/uL (0.0-1.0); MONOCYTES % (AUTO) 7.1 %; NEUTROPHILS # (AUTO) 5.2 10^3/uL (1.5-6.6); NEUTROPHILS % (AUTO) 57.1 %; PLT - PLATELET COUNT 205 10^3/uL (130-450); RED BLOOD COUNT 4.11 10^6/uL (4.70-6.10); RED CELL DISTRIBUTION WIDTH 13.3 % (12.0-15.0); WHITE BLOOD COUNT 9.2 x10^3/uL (4.8-10.8)
[2022-10-09 12:52] LABS: ESTIMATED AVERAGE GLUCOSE 137 mg/dL (70-100); HEMOGLOBIN A1c% 6.4 % (4.27-6.07)
[2022-10-09 13:24] LABS: ALBUMIN 4.3 g/dL (3.2-5.5); ALBUMIN/GLOBULIN RATIO 1.4 (1.0-2.2); ALKALINE PHOSPHATASE 70 IU/L (42-121); ALT ALANINE AMINOTRANSFERASE 48 IU/L (10-60); AST ASPARTATE AMINOTRANSFERASE 33 IU/L (10-42); BILIRUBIN,TOTAL 0.6 mg/dL (0.2-1.0); BUN - BLOOD UREA NITROGEN 21 mg/dL (6-20); CALCIUM 9.4 mg/dL (8.5-10.3); CARBON DIOXIDE - CO2 29 mmol/L (21-32); CHLORIDE 100 mmol/L (101-111); CHOL/HDL RATIO 3.6 (<5.0); CHOLESTEROL 111 mg/dL; CREATININE 1.1 mg/dL (0.6-1.3); GFR - MDRD 66 (>89); GLUCOSE 130 mg/dL (74-104); HDL CHOLESTEROL 31 mg/dL; LDL CHOLESTEROL,CALCULATED 36 mg/dL; LDL/HDL RATIO 1.2 (<3.6); POTASSIUM 4.1 mmol/L (3.5-4.5); SODIUM 135 mmol/L (135-145); TOTAL PROTEIN 7.3 g/dL (6.4-8.9); TRIGLYCERIDES 222 mg/dL (48-352); VLDL CHOLESTEROL 44 mg/dL
[2022-10-09 13:26] LABS: THYROID STIMULATING HORMONE 3.07 uIU/mL (0.34-5.60)
== END 2022-10-09 09:28 | disposition home or self-care (01) ==
LOC: LAB.N 09:27
PROVIDERS: ATTEND Physician Assistant
DX: E11.9 Type 2 diabetes mellitus without complications (principal)
CPT/HCPCS: 36415; 80053; 80061; 83036; 83721; 84443; 85025

== ENCOUNTER 2022-10-28 11:09 | Outpatient (CLI) | payer MEDICARE, OTHER ==
--- NOTE | 2022-10-28 12:50 | SLEEP CARE CONSULTATION ---
Information from patient questionnaire entered by Akosua Spencer. I have reviewed and concur with the information entered by Akosua Spencer. This document represents the service I personally performed and the decisions made by me, Gemma Stanford MD, [facility]. History of Present Illness Service Date and Time: 10/28/2022 1109 Previous diagnosis: Severe, Obstructive Sleep Apnea-Hypopnea Syndrome AHI: 56.9 (in 2007) Reason for follow up: annual (LAST SEEN 10/2021) Equipment type: CPAP (SD CARD NEEDED) Equipment obtained from: Other ([employer]) Mask style: Nasal pillows Prior sleep studies: Yes Year and Where: 2007 - [facility] Sleep Type of Sleep Study: Polysomnography HPI additional information: Mr. Sxaena was diagnosed to have severe obstructive sleep apnea-hypopnea syndrome and returns today for annual follow up of CPAP therapy. The patient purchased the device from [employer] but is getting supplies from [employer]. He was fitted with Respironics DreamWear nasal pillows. He continues to use the device nightly and all through the night. The compliance report shows that he uses the device 180 nights out of the past 180 nights, averaging 7.3 hours a night. He complains of no particular problem with the device such as soreness on the face, dry nose, epistaxis, nasal congestion or headache. He thinks that the pressure of 10 - 15 cmH2O is comfortable. On the CPAP therapy he notices improvement in his sleep quality, and that he wakes up feeling fresher in the morning and more awake/alert during the day. [place] Sleepiness Scale score is 3. His notices no snore at all. The average residual AHI is 1.6; and larg e leak, 0 L/min. The 90th percentile pressure is 14.1 cmH2O. His machine is 4 years old. Sleep Study - Results Type of Sleep Study: Polysomnography Prior sleep studies: Yes Year and Where: 2007 - [facility] Sleep Subjective Initial [place] Sleepiness Scale score: 18 (in 2007) Current [place] Sleepiness Scale score: 4 (10/28/22) Allergies and Home Medications Drug allergies reviewed: Yes Home medication list reviewed: Yes Allergy and home medication list: Allergies propoxyphene HCl * [From Darvon] Adverse Reaction (Intermediate, Verified 10/25/22 10:30) Nausea Review of Systems Review of systems same as previous: Yes Physical Exam Vital signs obtained and entered by: AKOSUA Guillen MA Blood Pressure: 122/64 (LEFT ARM) Cuff size: regular Heart Rate: 74 O2 Saturation: 97 Height: 5 ft 8 in Weight: 238 lb Body Mass Index: 36.1 BMI Classification: Obese Impression and Plan IMPRESSION: 1. Obstructive Sleep Apnea-Hypopnea Syndrome, severe, with the patient continuing to do well on nasal CPAP therapy. He has excellent compliance and significant clinical benefits. The current pressure appears effective and comfortable. Overall, he is very satisfied with treatment and plans to continue with it long-term. No adjustment is necessary today. Because the CPAP is now older than the useful life of 5 years, I will order the patient a new one and make it an autoCPAP set between 10 and 15 cmH2O. PLAN: 1. Leave CPAP at 10 - 15 cm H2O. 2. Prescription made for an autoCPAP, heated humidifier, and related supplies through [employer]. 3. Try to lose weight. 4. Return in one year for follow up or earlier if there is any problem. Prescriptions: Auto CPAP Follow up with Sleep Care in: 1 year Visit Type: In Office Time Spent with Patient (minutes): 15 Provider Statement: I spent 100% of the Face to Face Visit with the patient with greater than 50% spent counseling the patient and coordination of care.
[2022-10-28 12:58] VITALS: BP 122/64; O2SAT 97
== END 2022-10-28 11:10 | disposition home or self-care (01) ==
LOC: SC 11:09
PROVIDERS: ATTEND Internal Medicine Pulmonary Disease
DX: G47.33 Obstructive sleep apnea (adult) (pediatric) (principal); E66.9 Obesity, unspecified; Z68.36 Body mass index [BMI] 36.0-36.9, adult
CPT/HCPCS: 99212; G0463

== ENCOUNTER 2023-05-21 09:06 | Outpatient (CLI) | payer MEDICARE, OTHER ==
[2023-05-21 11:56] LABS: ESTIMATED AVERAGE GLUCOSE 146 mg/dL (70-100); HEMOGLOBIN A1c% 6.7 % (4.27-6.07)
[2023-05-21 12:48] LABS: ALBUMIN 4.4 g/dL (3.2-5.5); ALBUMIN/GLOBULIN RATIO 1.5 (1.0-2.2); ALKALINE PHOSPHATASE 66 IU/L (42-121); ALT ALANINE AMINOTRANSFERASE 44 IU/L (10-60); AST ASPARTATE AMINOTRANSFERASE 34 IU/L (10-42); BILIRUBIN,TOTAL 0.7 mg/dL (0.2-1.0); BUN - BLOOD UREA NITROGEN 16 mg/dL (6-20); CALCIUM 9.8 mg/dL (8.5-10.3); CARBON DIOXIDE - CO2 27 mmol/L (21-32); CHLORIDE 99 mmol/L (101-111); CHOL/HDL RATIO 3.4 (<5.0); CHOLESTEROL 105 mg/dL; GFR - MDRD 74 (>89); GLUCOSE 135 mg/dL (74-104); HDL CHOLESTEROL 31 mg/dL; LDL CHOLESTEROL,CALCULATED 22 mg/dL; LDL/HDL RATIO 0.7 (<3.6); POTASSIUM 4.1 mmol/L (3.5-4.5); SODIUM 134 mmol/L (135-145); TOTAL PROTEIN 7.4 g/dL (6.4-8.9); TRIGLYCERIDES 261 mg/dL (48-352); VLDL CHOLESTEROL 52 mg/dL
== END 2023-05-21 09:07 | disposition home or self-care (01) ==
LOC: LAB.N 09:06
PROVIDERS: ATTEND Physician Assistant
DX: E11.9 Type 2 diabetes mellitus without complications (principal)
CPT/HCPCS: 36415; 80053; 80061; 83036; 83721

== ENCOUNTER 2023-09-17 13:15 | Outpatient (CLI) | payer MEDICARE, OTHER | END 2023-09-17 23:59 | disposition critical access hospital (66) | LOC: EMS 13:15 | DX: R07.9 Chest pain, unspecified (principal); R42 Dizziness and giddiness | CPT/HCPCS: A0425; A0429 ==

== ENCOUNTER 2023-09-17 13:42 | Emergency (ER) | payer MEDICARE, OTHER ==
--- NOTE | 2023-09-17 14:02 | XRAY Report ---
PROCEDURE: Chest 1V INDICATIONS: Chest pain TECHNIQUE: One view of the chest was acquired. COMPARISON: None. FINDINGS: Surgical changes and devices: None. Lungs and pleura: No pleural effusions or pneumothorax. Lungs are clear. Mediastinum: Mediastinal contours appear normal. Heart size is normal. Bones and chest wall: No suspicious bony lesions. Overlying soft tissues appear unremarkable. IMPRESSION: No acute cardiopulmonary process. Reviewed by: Bill Howard MD on 09/17/2023 2:00 PM PDT Approved by: Bill Hwoard MD on 09/17/2023 2:00 PM PDT Station ID: [id number]
[2023-09-17 14:06] LABS: BASOPHILS % (AUTO) 0.3 %; EOSINOPHILS # (AUTO) 0.2 10^3/uL (0.0-0.7); EOSINOPHILS % (AUTO) 1.5 %; HCT - HEMATOCRIT 31.5 % (42.0-52.0); HGB - HEMOGLOBIN 10.2 g/dL (14.0-18.0); LYMPHOCYTES # (AUTO) 2.3 10^3/uL (1.5-3.5); MEAN CORPUSCULAR HGB CONC 32.4 g/dL (32.0-36.0); MEAN CORPUSCULAR VOLUME 92.6 fL (80.0-94.0); MEAN PLATELET VOLUME 10.9 fL (7.4-11.4); MONOCYTES # (AUTO) 0.6 10^3/uL (0.0-1.0); MONOCYTES % (AUTO) 5.7 %; NEUTROPHILS # (AUTO) 7.7 10^3/uL (1.5-6.6); NEUTROPHILS % (AUTO) 70.9 %; PLT - PLATELET COUNT 205 10^3/uL (130-450); RED CELL DISTRIBUTION WIDTH 13.3 % (12.0-15.0); WHITE BLOOD COUNT 10.8 x10^3/uL (4.8-10.8)
--- NOTE | 2023-09-17 14:10 | ED Physician Documentation ---
PD HPI CHEST PAIN - Stated complaint Stated Complaint: CP - Chief complaint Chief Complaint: Cardiac - Additional information Additional information: 72 yo male hx of HTN, high cholesterol, CAD, PR, CPAP use, sleep apnea, GI bleed, GERD, BPH, presents to the ER for chest pain. Chest pain started around 12:45. Hx of PR, this doesn't feel similar to PR in the past, pain to mid sternum area, pain went away after one nitro and 325mg Aspirin. New large appearing "bump to mid epigastric region" pain went away when the lump went away. Pt states he did have a near syncopal episode due to the severity of the pain that brought him to his knees. Did not lose conciousness. Did not eat prior to this event, at around 11:30am had about 4 pastry bites which is different than his normal diet. Episode of dizziness, does state he has not been drinking enough fluids with heat. After one drink of Gatorade that's when the pain started. 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 No new legs swelling. LAD stent 2012 for almost complete LAD block. Not on blood thinners. No SOB at rest, no recent fevers or chills, no new medications or supplements. PD PAST MEDICAL HISTORY - Past Medical History Past Medical History: Yes Cardiovascular: Hypertension, High cholesterol, Coronary artery disease, PR Respiratory: Sleep apnea, CPAP use Endocrine/Autoimmune: None GI: GERD, GI bleed, Hemorrhoids : Benign prostate hypertrophy HEENT: Chronic vision loss, Chronic sinusitis, Chronic hearing loss Psych: None Musculoskeletal: Osteoarthritis, Gout, Chronic back pain Derm: None - Past Surgical History Past Surgical History: Yes General: Colonoscopy, EGD Cardiovascular: Coronary stent, Cardiac catheterization - Present Medications Home Medications: Ambulatory Orders Medication Instructions Recorded Confirmed Aspirin [Aspir 81] 162 mg PO QDAC 01/26/13 10/28/22 Atenolol [Tenormin] 100 mg PO DAILY 01/26/13 10/28/22 Ferrous Gluconate [Fergon] 325 mg PO DAILY 01/26/13 10/28/22 Loratadine [Claritin] 10 mg PO QDAC 01/26/13 10/28/22 Omeprazole [PriLOSEC] 20 mg PO BID 01/26/13 10/28/22 allopurinoL [Zyloprim] 300 mg PO DAILY 01/26/13 10/28/22 lisinopriL [Zestril] 40 mg PO DAILY 01/26/13 10/28/22 Atorvastatin [Lipitor] 40 mg PO DAILY 03/16/15 10/28/22 Colchicine 0.6 mg PO TID 12/17/16 10/28/22 Nitroglycerin [Nitrostat] 0.4 mg SL Q5MIN PRN 12/17/16 10/28/22 hydroCHLOROthiazide 25 mg PO DAILY 12/17/16 10/28/22 [Hydrochlorothiazide] Isosorbide Mononitrate ER [Imdur] 0.5 tab PO DAILY 12/22/20 10/28/22 Tamsulosin [Flomax] 0.8 mg PO DAILY 12/22/20 10/28/22 amLODIPine [Norvasc] 5 mg PO DAILY 12/22/20 10/28/22 Glycine Urologic Solution [Glycine] See Rx Instructions .ROUTE .COMPLEX 10/28/22 10/28/22 Potassium Citrate [Potassium] See Rx Instructions .ROUTE .COMPLEX 10/28/22 10/28/22 - Allergies Allergies/Adverse Reactions: Allergies Allergy/AdvReac Type Severity Reaction Status Date / Time propoxyphene HCl * AdvReac Intermediate Nausea Verified 09/17/23 13:46 [From Darvon] - Social History Does the pt smoke?: No Smoking Status: Never smoker Does the pt drink ETOH?: No Does the pt have substance abuse?: No - Immunizations Immunizations are current?: Yes PD ED PE NORMAL - Vitals Vital signs reviewed: Yes - General General: Alert and oriented X 3, No acute distress, Well developed/nourished - HEENT HEENT: Atraumatic, PERRL - Neck Neck: No JVD - Cardiac Cardiac: RRR - Respiratory Respiratory: No respiratory distress, Clear bilaterally - Abdomen Abdomen: Normal bowel sounds, Soft, Non tender, No organomegaly - Back Back: No CVA TTP - Derm Derm: Normal color, Warm and dry, No rash - Extremities Extremities: No deformity, No edema, No calf tenderness / cord Results - Vitals Vitals: Vital Signs - 24 hr 09/17/23 09/17/23 09/17/23 16:00 17:00 17:30 Temperature 36.5 C 36.8 C Heart Rate 83 87 86 Respiratory 22 18 18 Rate Blood Pressure 132/68 H 109/75 132/76 H O2 Saturation 97 100 96 09/17/23 09/17/23 09/17/23 18:00 18:30 19:00 Temperature Heart Rate 86 87 89 Respiratory 23 18 19 Rate Blood Pressure 127/73 114/68 115/66 O2 Saturation 96 98 96 09/17/23 09/17/23 09/17/23 19:30 20:00 20:30 Temperature 36.7 C Heart Rate 90 89 90 Respiratory 18 19 23 Rate Blood Pressure 131/71 H 137/78 H 132/85 H O2 Saturation 97 97 96 09/17/23 21:00 Temperature Heart Rate 90 Respiratory 24 Rate Blood Pressure 132/85 H O2 Saturation 99 Oxygen O2 Source Room air - EKG (time done) 1341 EKG releavant findings:: EKG personally interpreted by author of this note. Relevant findings are: Rate: Rate (enter#) (82) Rhythm: NSR [place]: Normal Intervals: Normal CA QRS: Low voltage Ischemia: Other (borderline Twave abnormalities in anterior leads) Computer interpretation: Agree with computer - Labs Labs: Laboratory Tests 09/17/23 09/17/23 09/17/23 13:56 13:56 16:30 WBC 10.8 RBC 3.40 L Hgb 10.2 L Hct 31.5 L MCV 92.6 MCH 30.0 MCHC 32.4 RDW 13.3 Plt Count 205 MPV 10.9 Neut # (Auto) 7.7 H Lymph # (Auto) 2.3 [facility] # (Auto) 0.6 Eos # (Auto) 0.2 Baso # (Auto) 0.0 Absolute Nucleated RBC 0.00 Nucleated RBC % 0.0 APTT Sodium 133 L Potassium 4.0 Chloride 101 Carbon Dioxide 22 Anion Gap 10.0 BUN 33 H Creatinine 1.1 Estimated GFR (MDRD) 66 L Glucose 164 H Calcium 9.3 Total Bilirubin 0.7 AST 22 ALT 30 Alkaline Phosphatase 49 Troponin I High Sens < 2.3 L < 2.3 L Total Protein 6.6 Albumin 4.0 Globulin 2.6 Albumin/Globulin Ratio 1.5 Lipase 35 09/17/23 09/17/23 17:05 17:05 WBC 12.1 H RBC 3.40 L Hgb 10.6 L Hct 31.4 L MCV 92.4 MCH 31.2 H MCHC 33.8 RDW 13.4 Plt Count 203 MPV 10.5 Neut # (Auto) Lymph # (Auto) [facility] # (Auto) Eos # (Auto) Baso # (Auto) Absolute Nucleated RBC Nucleated RBC % APTT 25.5 Sodium Potassium Chloride Carbon Dioxide Anion Gap BUN Creatinine Estimated GFR (MDRD) Glucose Calcium Total Bilirubin AST ALT Alkaline Phosphatase Troponin I High Sens Total Protein Albumin Globulin Albumin/Globulin Ratio Lipase - Rads (name of study) chest Xray Relevant Findings:: Final report received, EMP independent interpretation of test, Other (no cardiopulmonary abnormalities) chest abd pelvis ct w/ Relevant Findings:: Final report received, EMP independent interpretation of test, Other (inferior renal pole mass, 9mm lower lobe nodule) PD Medical Decision Making - ED course ED course: 72 yo male here for chest pain, Chest Xray does not show any cardiopulmonary abnormalities negative delta troponins but HEART score 5, pt also reports over the last month he has been noticing exertional chest pain and given his story of near syncopal chest pain that caused him to collapse I called his systems analysis manager at [facility] Dr. Burns and he states pt needs to be transferred to [facility] immediately for heart cath and start on heparin gtt and administer 325mg asirin. Aspirin given, started pt on Heparin gtt and spoke with [facility] hospitalist Dr. Thorne who has graciously agreed to accept the pt. He was tranferred via ALS and was agreeable to go. 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 Images were recorded and evaluated at appropriate window settings. Reformats: coronal and sagittal. For radiation dose reduction, the following was used: automated exposure control, adjustment of mA and/or kV according to patient size. COMPARISON: CT abdomen and pelvis 02/09/2021, CT chest 01/27/2013 FINDINGS: Image quality: Diagnostic. Lower chest: 9 mm medial right lower lobe groundglass nodule series 19 image 1. Liver: No solid mass. Gallbladder: Biliary tree: No intrahepatic or extrahepatic dilation, accounting for age. Spleen: No splenomegaly. Pancreas: No pancreatic ductal dilation. Adrenals: No adrenal nodule. Kidneys and ureters: No hydronephrosis. Fat-containing 3.2 x 2.7 cm inferior left renal pole mass. This is present measuring 1.7 x 1.5 cm in 2020. Stomach, bowel and peritoneum: No gastric or small bowel dilation. No abnormal wall thickening. No pathologic free fluid. Lymph nodes: No central or retroperitoneal adenopathy. Vessels: No infrarenal aortic aneurysm. Patent portal vein. PELVIS Reproductive organs: Unremarkable. Bladder: No abnormal wall thickening, accounting for underdistention. Pelvic lymph nodes: No pelvic adenopathy by size criteria. Bones: No aggressive osseous abnormality. Other: Prominent bilateral fat-containing inguinal hernia. IMPRESSION: Interval large fat-containing left inferior pole renal mass. 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 However, given interval growth, underlying malignant component cannot be excluded. 9 mm right lower lobe groundglass nodule. No priors are available for comparison. 3-[address] follow-up is recommended. Reviewed by: Aniya Atkinson MD on 09/17/2023 4:00 PM PDT Approved by: Aniya Atkinson MD on 09/17/2023 4:00 PM PDT Station ID: [id number] Report Electronically Signed by Aniya Atkinson MD 09/17/23 1555 09/17/23 1600 cc: Riley Craven DNP Forms: PCP List Discharge Date/Time: 09/17/23 21:29
[2023-09-17] MEDS: SODIUM CHLORIDE 0.9% 1,000 ML IV ONE (14:28)
[2023-09-17 14:29] LABS: TROPONIN I HIGH SENSITIVITY < 2.3 ng/L (2.3-19.7)
[2023-09-17] MEDS ORDERED: iohexoL-300 100 ML VIAL ONE (14:33)
[2023-09-17 14:51] LABS: ALBUMIN/GLOBULIN RATIO 1.5 (1.0-2.2); ALKALINE PHOSPHATASE 49 IU/L (42-121); ALT ALANINE AMINOTRANSFERASE 30 IU/L (10-60); AST ASPARTATE AMINOTRANSFERASE 22 IU/L (10-42); BILIRUBIN,TOTAL 0.7 mg/dL (0.2-1.0); BUN - BLOOD UREA NITROGEN 33 mg/dL (6-20); CALCIUM 9.3 mg/dL (8.5-10.3); CARBON DIOXIDE - CO2 22 mmol/L (21-32); CHLORIDE 101 mmol/L (101-111); CREATININE 1.1 mg/dL (0.6-1.3); GFR - MDRD 66 (>89); GLUCOSE 164 mg/dL (74-104); LIPASE 35 U/L (11-82); SODIUM 133 mmol/L (135-145); TOTAL PROTEIN 6.6 g/dL (6.4-8.9)
[2023-09-17] MEDS: iohexoL-300 100 ML VIAL IVP ONE (15:50)
--- NOTE | 2023-09-17 15:56 | CT Report ---
PROCEDURE: Chest W INDICATIONS: severe chest pain with large "bump" below sternum CONTRAST: 100ml [id number] TECHNIQUE: After the administration of intravenous contrast, a CT scan of the chest was performed. Images were recorded and evaluated at appropriate window settings. Reformats: axial MIP of the chest, coronal and sagittal. For radiation dose reduction, the following was used: automated exposure control, adjustme nt of mA and/or kV according to patient size. COMPARISON: Chest x-ray 710 4, CT chest 01/27/2013 FINDINGS: Image quality: Diagnostic. Chest wall and lower neck: No thyroid nodule which requires sonographic follow up. No breast mass. No axillary or supraclavicular adenopathy by size. Lungs and pleura: No consolidation. No pleural effusions. No pneumothorax. No suspicious pulmonary n odules which require follow up. Mediastinum: Heart size is normal. No pericardial effusion. No large vessel abnormality. No mediastin al adenopathy by size criteria. Low-attenuation fibroid foci do not meet the criteria for additional follow-up. Bones: No aggressive osseous abnormality. Upper Abdomen: Unremarkable. IMPRESSION: No abnormal soft tissue or osseous abnormality. Reviewed by: Aniya Atkinson MD on 09/17/2023 3:55 PM PDT Approved by: Aniya Atkinson MD on 09/17/2023 3:55 PM PDT Station ID: [id number]
--- NOTE | 2023-09-17 16:01 | CT Report ---
PROCEDURE: Abdomen/Pelvis W INDICATIONS: severe chest pain with large "bump" below sternum CONTRAST: 100ml [id number] TECHNIQUE: After the administration of intravenous contrast, a CT scan of the abdomen and pelvis was performed. Images were recorded and evaluated at appropriate window settings. Reformats: coronal and sagittal. F or radiation dose reduction, the following was used: automated exposure control, adjustment of mA and /or kV according to patient size. COMPARISON: CT abdomen and pelvis 02/09/2021, CT chest 01/27/2013 FINDINGS: Image quality: Diagnostic. Lower chest: 9 mm medial right lower lobe groundglass nodule series 19 image 1. Liver: No solid mass. Gallbladder: Biliary tree: No intrahepatic or extrahepatic dilation, accounting for age. Spleen: No splenomegaly. Pancreas: No pancreatic ductal dilation. Adrenals: No adrenal nodule. Kidneys and ureters: No hydronephrosis. Fat-containing 3.2 x 2.7 cm inferior left renal pole mass. Th is is present measuring 1.7 x 1.5 cm in 2020. Stomach, bowel and peritoneum: No gastric or small bowel dilation. No abnormal wall thickening. No pa thologic free fluid. Lymph nodes: No central or retroperitoneal adenopathy. Vessels: No infrarenal aortic aneurysm. Patent portal vein. PELVIS Reproductive organs: Unremarkable. Bladder: No abnormal wall thickening, accounting for underdistention. Pelvic lymph nodes: No pelvic adenopathy by size criteria. Bones: No aggressive osseous abnormality. Other: Prominent bilateral fat-containing inguinal hernia. IMPRESSION: Interval large fat-containing left inferior pole renal mass. 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 However, given interval growth, underlying malignant component cannot be excluded. 9 mm right lower lobe groundglass nodule. No priors are available for comparison. 3-[address] follow-up is recommended. Reviewed by: Aniya Atkinson MD on 09/17/2023 4:00 PM PDT Approved by: Aniya Atkinson MD on 09/17/2023 4:00 PM PDT Station ID: [id number]
[2023-09-17] MEDS: ASPIRIN 325 MG TABLET PO STA (16:50)
[2023-09-17 17:09] LABS: HCT - HEMATOCRIT 31.4 % (42.0-52.0); HGB - HEMOGLOBIN 10.6 g/dL (14.0-18.0); MEAN CORPUSCULAR HEMOGLOBIN 31.2 pg (27.0-31.0); MEAN CORPUSCULAR HGB CONC 33.8 g/dL (32.0-36.0); MEAN CORPUSCULAR VOLUME 92.4 fL (80.0-94.0); MEAN PLATELET VOLUME 10.5 fL (7.4-11.4); RED BLOOD COUNT 3.4 10^6/uL (4.70-6.10); RED CELL DISTRIBUTION WIDTH 13.4 % (12.0-15.0); WHITE BLOOD COUNT 12.1 x10^3/uL (4.8-10.8)
[2023-09-17] MEDS: HEPARIN 5,000 UNIT/ML VIAL IVP ONE (17:16)
[2023-09-17] MEDS: HEPARIN 25000UNITS/500ML (D5W) 25,000 UNIT/500 ML BAG IV SCH (17:50)
[2023-09-17 20:38] VITALS: BP 132/85
[2023-09-17 21:09] VITALS: O2SAT 99
== END 2023-09-17 21:29 | disposition short-term general hospital (02) ==
LOC: EDUNIT# → ED 13:42
DX: I20.0 Unstable angina (principal); N28.89 Other specified disorders of kidney and ureter; I10 Essential (primary) hypertension; E78.00 Pure hypercholesterolemia, unspecified; I25.2 Old myocardial infarction; Z79.82 Long term (current) use of aspirin; Z79.899 Other long term (current) drug therapy
CPT/HCPCS: 36415; 71045; 71260; 74177; 80053; 83690; 84484; 85025; 85027; 85730; 93005; 96374; 99285; A9270; Q9967

== ENCOUNTER 2023-09-17 21:35 | Outpatient (CLI) | payer MEDICARE, OTHER | END 2023-09-17 23:59 | disposition short-term general hospital (02) | LOC: EMS 21:35 | PROVIDERS: ATTEND Nurse Practitioner | DX: I20.0 Unstable angina (principal) | CPT/HCPCS: A0425; A0426 ==

== ENCOUNTER 2023-09-26 10:55 | Outpatient (CLI) | payer MEDICARE, OTHER ==
[2023-09-26 17:53] LABS: BASOPHILS % (AUTO) 0.4 %; EOSINOPHILS # (AUTO) 0.2 10^3/uL (0.0-0.7); EOSINOPHILS % (AUTO) 1.6 %; HCT - HEMATOCRIT 27.5 % (42.0-52.0); HGB - HEMOGLOBIN 8.8 g/dL (14.0-18.0); LYMPHOCYTES # (AUTO) 2.1 10^3/uL (1.5-3.5); LYMPHOCYTES % (AUTO) 19.2 %; MEAN CORPUSCULAR HEMOGLOBIN 30.3 pg (27.0-31.0); MEAN CORPUSCULAR VOLUME 94.8 fL (80.0-94.0); MEAN PLATELET VOLUME 11.2 fL (7.4-11.4); MONOCYTES # (AUTO) 0.7 10^3/uL (0.0-1.0); MONOCYTES % (AUTO) 6.3 %; NEUTROPHILS # (AUTO) 7.8 10^3/uL (1.5-6.6); NEUTROPHILS % (AUTO) 71.8 %; PLT - PLATELET COUNT 287 10^3/uL (130-450); RED CELL DISTRIBUTION WIDTH 15.8 % (12.0-15.0); WHITE BLOOD COUNT 10.9 x10^3/uL (4.8-10.8)
[2023-09-26 19:21] LABS: CALCIUM 9.6 mg/dL (8.5-10.3); CREATININE 1.1 mg/dL (0.6-1.3); POTASSIUM 4.3 mmol/L (3.5-4.5)
== END 2023-09-26 10:56 | disposition home or self-care (01) ==
LOC: LAB.N 10:55
PROVIDERS: ATTEND Physician Assistant
DX: E87.6 Hypokalemia (principal); K92.2 Gastrointestinal hemorrhage, unspecified
CPT/HCPCS: 36415; 80048; 85025

== ENCOUNTER 2023-10-06 10:22 | Outpatient (CLI) | payer MEDICARE, OTHER ==
[2023-10-06 12:17] LABS: BASOPHILS % (AUTO) 0.5 %; EOSINOPHILS # (AUTO) 0.2 10^3/uL (0.0-0.7); EOSINOPHILS % (AUTO) 3.6 %; HCT - HEMATOCRIT 29.8 % (42.0-52.0); HGB - HEMOGLOBIN 9.6 g/dL (14.0-18.0); LYMPHOCYTES # (AUTO) 2.1 10^3/uL (1.5-3.5); LYMPHOCYTES % (AUTO) 31.6 %; MEAN CORPUSCULAR HEMOGLOBIN 29.9 pg (27.0-31.0); MEAN CORPUSCULAR HGB CONC 32.2 g/dL (32.0-36.0); MEAN CORPUSCULAR VOLUME 92.8 fL (80.0-94.0); MEAN PLATELET VOLUME 10.9 fL (7.4-11.4); MONOCYTES # (AUTO) 0.5 10^3/uL (0.0-1.0); MONOCYTES % (AUTO) 7.1 %; NEUTROPHILS # (AUTO) 3.8 10^3/uL (1.5-6.6); NEUTROPHILS % (AUTO) 56.6 %; PLT - PLATELET COUNT 268 10^3/uL (130-450); RED BLOOD COUNT 3.21 10^6/uL (4.70-6.10); RED CELL DISTRIBUTION WIDTH 15.1 % (12.0-15.0); WHITE BLOOD COUNT 6.6 x10^3/uL (4.8-10.8)
[2023-10-06 13:03] LABS: ALBUMIN 4.2 g/dL (3.2-5.5); ALBUMIN/GLOBULIN RATIO 1.6 (1.0-2.2); ALKALINE PHOSPHATASE 57 IU/L (42-121); ALT ALANINE AMINOTRANSFERASE 25 IU/L (10-60); AST ASPARTATE AMINOTRANSFERASE 21 IU/L (10-42); BILIRUBIN,TOTAL 0.5 mg/dL (0.2-1.0); BUN - BLOOD UREA NITROGEN 13 mg/dL (6-20); CALCIUM 9.7 mg/dL (8.5-10.3); CARBON DIOXIDE - CO2 26 mmol/L (21-32); CHLORIDE 103 mmol/L (101-111); CHOL/HDL RATIO 3.1 (<5.0); CHOLESTEROL 86 mg/dL; GFR - MDRD 74 (>89); GLUCOSE 133 mg/dL (74-104); HDL CHOLESTEROL 28 mg/dL; LDL CHOLESTEROL,CALCULATED 22 mg/dL; LDL/HDL RATIO 0.8 (<3.6); POTASSIUM 4.1 mmol/L (3.5-4.5); SODIUM 136 mmol/L (135-145); TOTAL PROTEIN 6.9 g/dL (6.4-8.9); TRIGLYCERIDES 180 mg/dL; URIC ACID 5.8 mg/dL (4.4-7.6); VLDL CHOLESTEROL 36 mg/dL
[2023-10-06 13:05] LABS: THYROID STIMULATING HORMONE 1.99 uIU/mL (0.34-5.60)
[2023-10-07 22:08] LABS: ESTIMATED AVERAGE GLUCOSE 108 mg/dL (70-100); HEMOGLOBIN A1c% 5.4 % (4.27-6.07)
== END 2023-10-06 10:23 | disposition home or self-care (01) ==
LOC: LAB.N 10:22
PROVIDERS: ATTEND Physician Assistant
DX: I25.10 Atherosclerotic heart disease of native coronary artery without angina pectoris (principal); E78.5 Hyperlipidemia, unspecified; Z12.5 Encounter for screening for malignant neoplasm of prostate; M10.9 Gout, unspecified
CPT/HCPCS: 36415; 80053; 80061; 84443; 84550; 85025; G0103; 83036; 83721; 84153

== ENCOUNTER 2023-11-17 09:12 | Outpatient (CLI) | payer MEDICARE, OTHER ==
--- NOTE | 2023-11-17 09:52 | SLEEP CARE CONSULTATION ---
Information from patient questionnaire entered by Akosua Spencer. I have reviewed and concur with the information entered by Akosua Spencer. This document represents the service I personally performed and the decisions made by me, Gemma Stanford MD, [facility]. History of Present Illness Service Date and Time: 11/17/2023911 Previous diagnosis: Severe, Obstructive Sleep Apnea-Hypopnea Syndrome AHI: 56.9 (in 2007) Reason for follow up: annual (10/2022) Equipment type: CPAP (SD CARD NEEDED) Equipment obtained from: Other ([employer]) Mask style: Nasal pillows Prior sleep studies: Yes Year and Where: 2007 - [facility] Sleep Type of Sleep Study: Polysomnography HPI additional information: Mr. Saxena was diagnosed to have severe obstructive sleep apnea-hypopnea syndrome and returns today for annual follow up of CPAP therapy. The patient purchased the ResMed AirSense 11 from [facility]. He was fitted with Respironics DreamWear nasal pillows. He continues to use the device nightly and all through the night. The compliance report shows that he uses the device 175 nights out of the past 180 nights, averaging 7.1 hours a night. He complains of no particular problem with the device such as soreness on the face, dry nose, epistaxis, nasal congestion or headache. He thinks that the pressure of 10 - 15 cmH2O is comfortable. On the CPAP therapy he notices improvement in his sleep quality, and that he wakes up feeling fresher in the morning and more awake/alert during the day. [place] Sleepiness Scale score is 4. His notices no snore at all. The average residual AHI is 1.6; and large leak, 0.1 L/min. The 90th percentile pressure is 11.3 cmH2O. Sleep Study - Results Type of Sleep Study: Polysomnography Prior sleep studies: Yes Year and Where: 2007 - [facility] Sleep CPAP Compliance Data - Data Reviewed with Patient Average duration of nightly device use: 6HRS 48MINS Compliance rate %: 70 (04/13/23-05/12/23) Current pressure setting (cmH2O): 10-15 Average residual AHI: 1.5 Subjective Initial [place] Sleepiness Scale score: 18 (in 2007) Current [place] Sleepiness Scale score: 4 (11/17/23) Allergies and Home Medications Drug allergies reviewed: Yes Home medication list reviewed: Yes Allergy and home medication list: Allergies propoxyphene HCl * [From Darvon] Adverse Reaction (Intermediate, Verified 11/17/23 09:28) Nausea Review of Systems Review of systems same as previous: Yes (BLEEDING ULCER) Physical Exam Vital signs obtained and entered by: AKOSUA Guillen MA Blood Pressure: 133/68 (LEFT ARM) Cuff size: long Heart Rate: 72 O2 Saturation: 98 Height: 5 ft 8 in Weight: 237 lb 6.4 oz Body Mass Index: 36.1 BMI Classification: Obese Impression and Plan IMPRESSION: 1. Obstructive Sleep Apnea-Hypopnea Syndrome, severe, with the patient continuing to do well on nasal CPAP therapy. He has excellent compliance and significant clinical benefits. The current pressure appears effective and comfortable. Overall, he is very satisfied with treatment and plans to continue with it long-term. No adjustment is necessary today. PLAN: 1. Leave CPAP at 10 - 15 cm H2O. 2. Try to lose weight. 3. Return in one year for follow up or earlier if there is any problem. Counseling Topics: Weight control Follow up with Sleep Care in: 1 year Visit Type: In Office Time Spent with Patient (minutes): 15 Provider Statement: I spent 100% of the Face to Face Visit with the patient with greater than 50% spent counseling the patient and coordination of care.
[2023-11-17 10:03] VITALS: BP 133/68; O2SAT 98
== END 2023-11-17 09:13 | disposition home or self-care (01) ==
LOC: SC 09:12
PROVIDERS: ATTEND Internal Medicine Pulmonary Disease
DX: G47.33 Obstructive sleep apnea (adult) (pediatric) (principal); E66.9 Obesity, unspecified; Z68.36 Body mass index [BMI] 36.0-36.9, adult
CPT/HCPCS: 99212; G0463

== ENCOUNTER 2023-11-27 09:02 | Outpatient (CLI) | payer MEDICARE, OTHER ==
[2023-11-27 11:57] LABS: BASOPHILS # (AUTO) 0.1 10^3/uL (0.0-0.1); BASOPHILS % (AUTO) 0.7 %; EOSINOPHILS # (AUTO) 0.3 10^3/uL (0.0-0.7); EOSINOPHILS % (AUTO) 3.8 %; HCT - HEMATOCRIT 35.8 % (42.0-52.0); HGB - HEMOGLOBIN 11.6 g/dL (14.0-18.0); LYMPHOCYTES # (AUTO) 2.3 10^3/uL (1.5-3.5); LYMPHOCYTES % (AUTO) 32.1 %; MEAN CORPUSCULAR HEMOGLOBIN 29.4 pg (27.0-31.0); MEAN CORPUSCULAR HGB CONC 32.4 g/dL (32.0-36.0); MEAN CORPUSCULAR VOLUME 90.6 fL (80.0-94.0); MEAN PLATELET VOLUME 11.4 fL (7.4-11.4); MONOCYTES # (AUTO) 0.5 10^3/uL (0.0-1.0); MONOCYTES % (AUTO) 7.5 %; NEUTROPHILS # (AUTO) 3.9 10^3/uL (1.5-6.6); NEUTROPHILS % (AUTO) 55.3 %; PLT - PLATELET COUNT 222 10^3/uL (130-450); RED BLOOD COUNT 3.95 10^6/uL (4.70-6.10); RED CELL DISTRIBUTION WIDTH 13.6 % (12.0-15.0)
== END 2023-11-27 09:03 | disposition home or self-care (01) ==
LOC: LAB.N 09:02
PROVIDERS: ATTEND Physician Assistant
DX: D64.9 Anemia, unspecified (principal)
CPT/HCPCS: 36415; 85025